=== PATIENT | male | born 1945 | race Caucasian/White ===

== ENCOUNTER 2019-03-23 06:23 | Emergency (ER) | payer MEDICARE, OTHER ==
[~2019-03-23] VITALS: Ht 180.3 cm; Wt 74.8 kg
--- NOTE | ~2019-03-23 | EKG ---
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
--- NOTE | ~2019-03-23 | EKG ---
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
--- NOTE | ~2019-03-23 | EKG ---
[place], [place] ELECTROCARDIOGRAM REPORT NAME: VINI MIX UNIT #: [id number] ROOM: DOCTOR: NOREEN DRAFT REPORT BIRTHDATE: [birth year] [facility] Test Date: 2019-03-23 Test Time: 10:05:30 Pat Name: VINI MIX Department: Room: Gender: Restorative Aide: : 1945 Requested By: XIMENA LONG Order Number: [id number] Reading MD: Measurements Intervals [place] Rate: 78 P: 74 [place]: 151 QRS: -33 QRSD: 102 T: 60 QT: 396 QTc: 452 Interpretive Statements Sinus rhythm Left axis deviation RSR' in V1 or V2, probably normal variant Baseline wander in lead(s) V6 No previous ECG available for comparison CM:EKGRPT:ELECTROCARDIOGRAM REPORT [id number] XIMENA SORTO DRAFT REPORT XIMENA LONG MD
[2019-03-23 07:41] LABS: BASO % 0.4 % (0.0-1.0); EOS % 0.4 % (1.0-4.0); HEMATOCRIT 42.2 % (42.0-52.0); HEMOGLOBIN 14.5 g/dl (14.0-18.0); LYMPH # 1.1 10*3/uL (1.3-4.4); LYMPH % 13.6 % (27.0-41.0); MEAN CELL VOLUME 88.5 fl (80.0-94.0); MEAN CORPUSCULAR HGB 30.4 pg (27.0-31.0); MEAN CORPUSCULAR HGB CONC 34.4 g/dl (33.0-37.0); MEAN PLATELET VOLUME 9.6 fl (9.6-12.3); MONO # 0.6 10*3/uL (0.1-1.0); MONO % 7.6 % (3.0-9.0); NEUT # 6.4 10*3/uL (2.3-7.9); NEUT % 77.6 % (47.0-73.0); PLATELET COUNT AUTOMATED 190 10*3/uL (130-400); RED BLOOD COUNT 4.77 10*6/uL (4.50-5.90); RED CELL DISTRI WIDTH 12.1 % (0-14.5); WHITE BLOOD COUNT 8.2 10*3/uL (4.8-10.8)
[2019-03-23 07:57] LABS: ACT PARTIAL THROMBO TIME 24.8 SECONDS (20.0-32.1); ALBUMIN 3.2 gm/dl (3.1-4.5); ALKALINE PHOSPHATASE 56 U/L (45-117); BUN 18 mg/dl (7-24); CHLORIDE 101 mmol/L (98-107); CREATININE 0.87 mg/dL (0.70-1.30); SGOT/AST 14 IU/L (3-35); SGPT/ALT 16 U/L (12-78); SODIUM 136 mmol/L (136-145); TOTAL PROTEIN 6.6 gm/dL (6.4-8.2)
[2019-03-23 08:06] LABS: TROPONIN I < 0.015 ng/ml (<0.045)
== END 2019-03-23 10:39 | disposition home or self-care (01) ==
LOC: ED 06:23
PROVIDERS: Emergency Medicine
DX: M54.6 Pain in thoracic spine (principal); M25.511 Pain in right shoulder; R79.1 Abnormal coagulation profile; E89.0 Postprocedural hypothyroidism

== ENCOUNTER 2020-12-12 10:26 | Emergency (ER) | payer OTHER ==
[~2020-12-12] VITALS: Ht 180.3 cm; Wt 103.9 kg
[~2020-12-12 10:26] MED LIST: ASPERCREME W/LIDOCAI T; ASPIRIN ADULT L81 M1 PO; CEFTRIAXONE2 GM IV; LIDODERM1 EACH T; PRILOSEC20 M1 PO; REMERON15 M2 PO; RISPERDAL1 M1 PO
[2020-12-12 11:07] LABS: BASO % 0.5 % (0.0-1.0); EOS # 0.1 10*3/uL (0.0-0.4); EOS % 1.6 % (1.0-4.0); HEMATOCRIT 43.9 % (42.0-52.0); LYMPH # 1.7 10*3/uL (1.3-4.4); LYMPH % 22.7 % (27.0-41.0); MEAN CELL VOLUME 92.2 fl (80.0-94.0); MEAN CORPUSCULAR HGB 30.9 pg (27.0-31.0); MEAN CORPUSCULAR HGB CONC 33.5 g/dl (33.0-37.0); MEAN PLATELET VOLUME 10.1 fl (9.6-12.3); MONO # 0.6 10*3/uL (0.1-1.0); MONO % 8.1 % (3.0-9.0); NEUT % 66.4 % (47.0-73.0); PLATELET COUNT AUTOMATED 172 10*3/uL (130-400); RED BLOOD COUNT 4.76 10*6/uL (4.50-5.90); RED CELL DISTRI WIDTH 11.9 % (0-14.5); WHITE BLOOD COUNT 7.5 10*3/uL (4.8-10.8)
[2020-12-12 11:23] LABS: ALBUMIN 3.3 gm/dl (3.1-4.5); ALKALINE PHOSPHATASE 64 U/L (45-117); BUN 26 mg/dl (7-24); CHLORIDE 110 mmol/L (98-107); CREATININE 1.22 mg/dL (0.70-1.30); LIPASE 106 U/L (73-393); POTASSIUM 4.2 mmol/L (3.5-5.1); SGOT/AST 24 IU/L (3-35); SGPT/ALT 22 U/L (12-78); SODIUM 140 mmol/L (136-145); TOTAL PROTEIN 7.1 gm/dL (6.4-8.2)
[2020-12-12 11:31] LABS: TROPONIN I < 0.015 ng/ml (<0.045)
== END 2020-12-12 14:28 | disposition home or self-care (01) ==
LOC: ED 10:26
PROVIDERS: Emergency Medicine
DX: R07.89 Other chest pain (principal); Z79.82 Long term (current) use of aspirin; Z79.899 Other long term (current) drug therapy

== ENCOUNTER → 2021-04-15 | Outpatient (CLI) | payer MEDICARE | END | disposition home or self-care (01) | LOC: COVID19 00:14 → LAB 00:14 → COVID19 12:30 | PROVIDERS: ATTEND Internal Medicine | DX: Z11.52 Encounter for screening for COVID-19 (principal) ==

== ENCOUNTER 2022-11-27 18:56 | Emergency (ER) | payer MEDICARE ==
[~2022-11-27] VITALS: Ht 177.8 cm; Wt 89.4 kg
[2022-11-27] MEDS ORDERED: ARICEPT10 M1 PO (19:44)
[2022-11-27] MEDS ORDERED: ELIQUIS5 M1 PO (19:44)
[2022-11-27] MEDS ORDERED: NAMENDA5 M1 PO (19:45)
[2022-11-27 20:06] LABS: BILIRUBIN 1+ (Negative); BLOOD 3+ (Negative); CLARITY Turbid (Clear); COLOR Orange (Yellow); GLUCOSE Negative (Negative); KETONE Negative (Negative); LEUKO ESTERASE 1+ (Negative); NITRITE Negative (Negative); PH 5.5 (4.5-8.0); SPECIFIC GRAVITY 1.025 (1.001-1.030)
[2022-11-27] MEDS ORDERED: CEFDINIR300 MG PO (20:07)
[2022-11-27 20:15] LABS: RBC 41-50 rbc/hpf (0-2)
== END 2022-11-27 21:01 | disposition home or self-care (01) ==
LOC: ED 18:56
PROVIDERS: Emergency Medicine
DX: R31.9 Hematuria, unspecified (principal); F03.90 Unspecified dementia, unspecified severity, without behavioral disturbance, psychotic disturbance, mood disturbance, and anxiety; Z98.890 Other specified postprocedural states

== ENCOUNTER 2024-03-07 19:09 | Emergency (ER) | payer OTHER ==
[~2024-03-07] VITALS: Ht 177.8 cm; Wt 86.2 kg
[~2024-03-07 19:09] MED LIST changes: +ARICEPT10 M1 PO; +CEFDINIR300 MG PO; +ELIQUIS5 M1 PO; +NAMENDA5 M1 PO
[2024-03-07] MEDS ORDERED: ZOLOFT100 MG PO (19:40)
[2024-03-07] MEDS ORDERED: Depakote250 MG PO (19:41)
[2024-03-07] MEDS ORDERED: QUETIAPINE FUMA25 M2 PO (19:41)
[2024-03-07] MEDS ORDERED: TOPROL XL25 MG PO (19:42)
[2024-03-07] MEDS ORDERED: PROSCAR5 M1 PO (19:42)
[2024-03-07] MEDS ORDERED: Tdap Vaccine 0.5 ML SYR (Adult Vaccine) IM ONE (20:25)
== END 2024-03-07 22:45 | disposition home or self-care (01) ==
LOC: ED 19:09
DX: S16.1XXA Strain of muscle, fascia and tendon at neck level, initial encounter (principal); S00.83XA Contusion of other part of head, initial encounter; S80.02XA Contusion of left knee, initial encounter; S80.01XA Contusion of right knee, initial encounter; F03.90 Unspecified dementia, unspecified severity, without behavioral disturbance, psychotic disturbance, mood disturbance, and anxiety; I48.91 Unspecified atrial fibrillation; Z79.899 Other long term (current) drug therapy; Z98.890 Other specified postprocedural states; W18.39XA Other fall on same level, initial encounter; Y93.89 Activity, other specified; Y92.093 Driveway of other non-institutional residence as the place of occurrence of the external cause; Y99.8 Other external cause status